=== PATIENT | male | born 1980 | race Two or more races ===

== ENCOUNTER → 2024-03-18 | Outpatient (CLI) | payer OTHER, SELFPAY ==
--- NOTE | 2024-03-18 10:53 | XR_ITS ---
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
== END | disposition home or self-care (01) ==
LOC: CDIM 10:39
PROVIDERS: PCP Physician Assistant; Referring Provider Physician Assistant; Visit Provider Physician Assistant
DX: M19.011 Primary osteoarthritis, right shoulder (principal); S46.011A Strain of muscle(s) and tendon(s) of the rotator cuff of right shoulder, initial encounter; X58.XXXA Exposure to other specified factors, initial encounter
CPT/HCPCS: 73030

== ENCOUNTER 2024-10-31 19:39 | Emergency (ER) | payer BC, MEDICAID, SELFPAY ==
[2024-10-31 19:40] VITALS: BMI 50.6
[2024-10-31 20:23] VITALS: BP 144/96; PULSE 91; RESP 18; TEMP 37.3; O2SAT 97
--- NOTE | 2024-10-31 20:24 | XR_ITS ---
Examination: CT abdomen and pelvis without contrast. Coronal 3-D reconstructions. Sagittal 2-D reconstructions. Date and time of exam:November 10, 2024 2122 hrs. Indications: Onset left-sided flank pain today CTDI: vol (mGy): 15.4 DLP: (mGycm): 979 Technique: Axial images of the abdomen have been obtained, 3 mm slice thickness Intravenous contrast material has not been administered. Low dose protocols were performed. One or more of the following dose reduction techniques were used; automated exposure control, adjustment of the mA and/or KV according to patient size, use of iterative reconstruction technique. Findings: No focal liver or splenic lesions No gallstones No pancreatic or adrenal mass 1 mm left renal calculus, 2 mm right renal calculus No hydronephrosis or ureteral calculi. Aorta normal size. Absent appendix. No bowel obstruction Intact urinary bladder. No prostatomegaly Moderate degenerative disc disease at the lower 3 lumbar levels Impression: Tiny bilateral nonobstructing renal calculi. No hydronephrosis or ureteral calculi
[2024-10-31 21:01] LABS: Basophils # (Auto) 0.0 Thou/mm3 (0.0-0.2); Basophils % (Auto) 0 % (0-2.5); Eosinophils # (Auto) 0.2 Thou/mm3 (0.0-0.5); Eosinophils % (Auto) 2 % (0-10); Hematocrit 40.6 % (41.0-53.0); Hemoglobin 14.5 g/dL (13.5-16.0); Immature Granulocytes Auto 0.04 Thou/mm3 (0.00-0.00); Lymphocytes # (Auto) 3.5 Thou/mm3 (1.0-4.8); Lymphocytes % (Auto) 24 % (10-50); Mean Corpuscular HGB Conc 35.7 g/dl (31.0-37.0); Mean Corpuscular Hemoglobin 31.0 pg (25.0-35.0); Mean Corpuscular Volume 87 fL (80-100); Monocytes # (Auto) 1.4 Thou/mm3 (0.0-0.8); Monocytes % (Auto) 10 % (0-12); Neutrophils # (Auto) 9.3 Thou/mm3 (1.8-7.7); Neutrophils % (Auto) 64 % (37-80); Nucleated Red Blood Cell # 0.00 Thou/mm3 (0.00-0.00); Nucleated Red Blood Cell % 0 /100 WBC (0); Platelet Count 252 Thou/mm3 (140-440); RDW Standard Deviation 39.3 fL (35.1-43.9); Red Blood Count 4.67 Miln/mm3 (4.50-5.90); White Blood Count 14.5 Thou/mm3 (3.8-10.6)
[2024-10-31 21:08] LABS: Collection Type, Urine Clean Catch
[2024-10-31 21:17] LABS: Bilirubin,Urine Negative (Negative); Blood,Urine Negative (Negative); Clarity,Urine Clear (Clear/Hazy); Color,Urine Lt-Yellow (Lt Yel-Yel); Glucose, Urine Negative (Negative); Ketones,Urine Negative (Negative); Leukocyte Esterase,Urine Negative (Negative); Nitrite,Urine Negative (Negative); PH,Urine 6.0 (5.0-7.0); Protein,Urine Negative (Neg - Trace); RBC,Urine 1 /hpf (0-3); Specific Gravity,Urine 1.020 (1.001-1.035); Squamous Epithelial Cell,Urine 1 /hpf (0-5); Urobilinogen,Urine Negative mg/dL (0.0-1.0); WBC,Urine < 1 /hpf (0-5)
[2024-10-31 21:32] LABS: Alanine Aminotransferase 17 U/L (10-49); Albumin, Serum 4.3 gm/dL (3.5-5.0); Albumin/Globulin Ratio 1.6 (1.2-2.2); Alkaline Phosphatase 56 U/L (46-116); Anion Gap 10 (7-16); Aspartate Amino Transferase 16 U/L (0-34); BUN/Creatinine Ratio 9 Ratio (12-20); Bilirubin,Total 0.3 mg/dL (0.3-1.2); Blood Urea Nitrogen 10 mg/dL (9-23); Calcium 9.4 mg/dL (8.3-10.6); Calcium (Corrected) 9.4 mg/dL (8.5-10.1); Carbon Dioxide 28.1 mMol/L (20.0-31.0); Chloride 102 mMol/L (98-107); Creatinine (Component) 1.1 mg/dL (0.6-1.3); Estimated Creatinine Clearance 101.7 mL/min (>60); Globulin 2.7 gm/dL (2.3-3.5); Glucose 85 mg/dL (74-106); Lipase 35 U/L (12-53); Osmolality,Calculated 277 (275-295); Potassium 4.3 mMol/L (3.4-5.1); Sodium 140 mMol/L (136-145); Total Protein 7.0 gm/dL (5.7-8.2); eGFR > 60 See Note
--- NOTE | 2024-10-31 22:18 | PD.EDRME ---
Rapid Medical Screening Exam RME Arrival date/time: 10/31/24 19:39 This is a case of 44-year-old male with no medical history came in in the emergency room due to left flank pain radiating to the left side of the abdomen with nausea vomiting for 3 days worsening of the symptoms this patient decided to sought consult here in the emergency room Chief Complaint: Abdominal Pain Time Seen by Provider: 10/31/24 19:41 Vital signs: Vital Signs Temperature 99.2 F 10/31/24 20:23 Pulse Rate 91 10/31/24 20:23 Respiratory Rate 18 10/31/24 20:23 Blood Pressure 144/96 H 10/31/24 20:23 Pulse Oximetry (%) 97 10/31/24 20:23 Oxygen Delivery Method Room Air 10/31/24 20:23
--- NOTE | 2024-10-31 22:48 | PD.EDABDPN ---
ED Abdominal Pain RME/HPI General Chief Complaint: Abdominal Pain Stated complaint: LEFT FLANK PAIN Time seen by provider: 10/31/24 19:41 Arrival date/time: 10/31/24 19:39 This is a case of 44-year-old male with no medical history came in in the emergency room due to left flank pain radiating to the left side of the abdomen with nausea vomiting for 3 days worsening of the symptoms this patient decided to sought consult here in the emergency room Limitations: no limitations RME / HPI RME / HPI narrative: 10/31/24 19:39 This is a case of 44-year-old male with no medical history came in in the emergency room due to left flank pain radiating to the left side of the abdomen with nausea vomiting for 3 days worsening of the symptoms this patient decided to sought consult here in the emergency room Related Data Home Medications ?Medication ?Instructions ?Recorded ?Confirmed amlodipine 5 mg-benazepril 10 mg 1 cap PO HS 06/06/20 06/07/20 capsule Previous Rx's ?Medication ?Instructions ?Recorded cephalexin 500 mg capsule 500 mg PO BID #14 caps 06/07/20 hydrocodone 5 mg-acetaminophen 325 1 tab PO Q6H PRN pain #20 tabs 10/31/24 mg tablet ondansetron 4 mg disintegrating 4 mg PO Q8H PRN nausea and 10/31/24 tablet vomiting #20 tabs tamsulosin 0.4 mg capsule (Flomax) 0.4 mg PO QDAY #10 caps 10/31/24 Allergies Allergy/AdvReac Type Severity Reaction Status Date / Time No Known Allergies Allergy Verified 10/31/24 19:39 Review of Systems Review of Systems Systems Reviewed: All systems reviewed, normal except as documented Constitutional Constitutional: Reports system reviewed and no additional complaints, except as documented and Reports as per HPI Cardiovascular Cardiovascular: Reports system reviewed and no additional complaints, except as documented and Reports as per HPI Respiratory Respiratory: Reports system reviewed and no additional complaints, except as documented and Reports as per HPI Gastrointestinal Gastrointestinal: Reports system reviewed and no additional complaints, except as documented, Reports as per HPI, Reports abdominal pain, Reports nausea and Reports vomiting Neurologic Neurologic: Reports system reviewed and no additional complaints, except as documented and Reports as per HPI Past Medical History Past Medical History NEUROLOGIC: Negative Neurological Disorders or Seizures CARDIAC: Positive Cardiac Disorders and Hypertension; Negative Congestive Heart Failure RESPIRATORY: Negative Chronic Obstructive Pulmonary Disease (COPD) GASTROINTESTINAL: Negative Gastrointestinal Disorders or Hepatitis GENITOURINARY: Negative Genitourinary Disorders or Renal Disease MUSCULOSKELETAL: Positive Musculoskeletal Disorders (TORE ACL LEFT KNEE) ENDOCRINE: Negative Endocrine Disorders, Diabetes Mellitus Type 1 or Diabetes Mellitus Type 2 HEMATOLOGIC: Negative Anemia or Clotting Problems OTHER HISTORY: Negative Falls, Blood Transfusions, Blood Transfusion Reaction, Anesthesia Reactions, MRSA, Chicken Pox or Cancer Family History FAMILY HISTORY: Positive Family Cardiac Disorders (MOTHER-HTN); Negative Family Surgery or Family Anesthesia Reaction Surgical History SURGICAL: Positive Abdominal Surgery; Negative Cardiac Surgery, Endocrine Surgery, Ear Surgery, Nephrectomy, Neurologic Surgery or Vasectomy Social History SMOKING STATUS: Never smoker ED Exam General Limitations: Present no limitations General appearance: Present alert, in no apparent distress and other (Patient is awake alert oriented not in distress nontoxic looking well-hydrated well-nourished) Head Head exam: Present atraumatic, normocephalic and normal inspection Eye Eye exam: Present normal appearance, PERRL and EOMI ENT ENT exam: Present normal exam, normal oropharynx and mucous membranes moist Neck Neck exam: Present normal inspection, full ROM and trachea midline; Absent tenderness, meningismus or lymphadenopathy Chest Chest inspection: Present normal inspection and symmetric chest wall rise; Absent tenderness Respiratory Respiratory exam: Present normal lung sounds bilaterally; Absent respiratory distress, wheezes, stridor, accessory muscle use or prolonged expiratory phase Cardiovascular Cardiovascular exam: Present regular rate, normal rhythm and normal heart sounds; Absent bradycardia, tachycardia, irregular rhythm, systolic murmur or diastolic murmur Abdominal Exam Abdominal exam: Present soft, tenderness (Mild tenderness left flank mild CVA tenderness left) and normal bowel sounds; Absent distention, guarding, rebound, rigidity, diminished bowel sounds, hyperactive bowel sounds, hypoactive bowel sounds, organomegaly, trauma, psoas sign, obturator sign, Gómez's sign, Rovsing's sign, tenderness at McBurney's Point, mass or hernia Extremities Exam Extremities exam: Present normal inspection and full ROM Back Exam Back exam: Present normal inspection and full ROM; Absent tenderness, CVA tenderness (R), CVA tenderness (L), muscle spasm, paraspinal tenderness, vertebral tenderness, rashes, sciatic notch tenderness (R), sciatic notch tenderness (L), straight leg raise (R) or straight leg raise (L) Neurological Exam Neurological exam: Present alert, oriented X3, CN II-XII intact, normal gait and reflexes normal; Absent motor sensory deficit Psychiatric Psychiatric exam: Present normal affect and normal mood Skin Skin exam: Present warm, dry, intact and normal color Course Quality Measures none Orders Category Date Time Status CT abdomen pelvis wo con Stat Exams 10/31/24 20:24 Completed CBC Stat Lab 10/31/24 20:43 Completed Comprehensive Metabolic Panel Stat Lab 10/31/24 20:43 Completed Lipase Stat Lab 10/31/24 20:43 Completed Urinalysis Stat Lab 10/31/24 20:41 Completed Ketorolac Inj [Toradol Inj] Med 10/31/24 22:42 Discontinued 30 mg IM X1 ONE Morphine* Inj Med 10/31/24 22:42 Discontinued 4 mg IM X1 ONE Ondansetron Odt [Zofran Odt] Med 10/31/24 22:42 Discontinued 4 mg PO X1 ONE Tamsulosin HCl [Flomax] Med 10/31/24 22:42 Discontinued 0.4 mg PO X1 ONE Vital Signs Vital signs: Vital Signs Temperature 99.2 F 10/31/24 20:23 Pulse Rate 91 10/31/24 20:23 Respiratory Rate 18 10/31/24 20:23 Blood Pressure 144/96 H 10/31/24 20:23 Pulse Oximetry (%) 97 10/31/24 20:23 Oxygen Delivery Method Room Air 10/31/24 20:23 Oxygen saturation is 97% on room air Abdominal Pain MDM MDM Narrative MDM Narrative:: This is a case of 44-year-old male with no medical history came in in the emergency room due to left flank pain radiating to the left side of the abdomen with nausea vomiting for 3 days worsening of the symptoms this patient decided to sought consult here in the emergency room physical examination patient is awake alert oriented not in distress nontoxic looking well-hydrated well-nourished patient vital signs stable BP stable not tachycardic not tachypneic afebrile and nonhypoxic patient abdominal exam is benign nonsurgical no guarding no rebound no rigidity mild tenderness on the left flank with mild CVA tenderness on the left flank no bladder tenderness or distention negative psoas negative straight and negative Rovsing's no McBurney's negative Gómez sign negative CVA tenderness no signs and symptoms of sepsis dehydration or acute abdomen blood test showed leukocytosis WBC is 14,000 no anemia kidney and liver function is normal no electrolyte imbalance lipase is normal urinalysis is normal CT scan showed a bilateral nephrolithiasis and DDD of lumbar patient was given morphine and Toradol here in the emergency room for pain Zofran for nausea vomiting and Flomax for kidney stone after 30 minutes patient was reassessed patient pain was resolved patient will follow-up PCP in 2 days for reevaluation and to be referred to urologist for nephrolithiasis and neurosurgeon for DDD lumbar for possible MRI to rule out herniated disc return precaution to ER for worsening symptoms is advised Patient was discharged with comfortable condition walking with stable gait. Patient verbalized no further complains explained diagnosis and answered patient question. Patient is comfortable with the proposed management plan including the need to follow up with his/her primary care physician and any specialist if applicable Discussed patient for any urgent condition or worsening sx, He/She needed to go to emergency room immediately or call 911. Patient acknowledge the responsibility to follow up as instructed and to monitor her/his symptoms. For any persistence of the symptoms for more than 3-5 days return precaution advised. Discussed the result of the test and was given printed discharge instruction Patient data External records reviewed:: [facility] previous records Clinical information provided by:: patient and family Social determinants that could affect healthcare access:: none Patient has the following chronic illnesses:: None How is presenting disease/condition affected by chronic disease/condition?: no chronic disease Evaluation data The following diagnostics were reviewed and interpreted by me:: lab results and radiology exam(s) Lab and/or radiology exams considered but not ordered:: Reviewed Interpretation Summary: Reviewed Medications / Prescriptions Medications or Prescriptions considered but not ordered:: Given Medication administrations:: Medication Administration History Discontinued Medications Ketorolac Tromethamine (Ketorolac Inj 60 Mg/2 Ml Vial) 30 mg IM X1 ONE Stop: 10/31/24 22:43 Morphine Sulfate (Morphine Sulf Inj 4 Mg/Ml Vial) 4 mg IM X1 ONE Stop: 10/31/24 22:43 Ondansetron HCl (Ondansetron Odt 4 Mg Tabrap) 4 mg PO X1 ONE; Protocol Stop: 10/31/24 22:43 Tamsulosin HCl (Tamsulosin Hcl 0.4 Mg Capsule) 0.4 mg PO X1 ONE Stop: 10/31/24 22:43 Given Consultations Consultation(s) initiated? (list below): No Diagnosis Differential diagnosis abdominal pain: abdominal pain, acute appendicitis, calculus of kidney, diverticulitis, gastroenteritis and small bowel obstruction Most likely diagnosis given after review of the tests above:: Nephrolithiasis Admission Indicated Admission indicated?: not indicated Explain why admission is indicated or not indicated:: Not indicated Admission Request Was there a request for admission?: No Disposition Plan Disposition Plan: Discharge Discharge Attestation Discharge Attestation: The patient and all family members were given an opportunity to ask questions and understood the discharge instructions. Discharge instructions specifically effects, indications for sooner follow up or return to the emergency department, and the expected course of current diagnosis. Patient condition: Stable Discharge Plan Plan Patient Disposition: HOME (Self Care) Patient condition on transfer: Stable Prescriptions/Referrals Prescriptions/Med Rec: New hydrocodone-acetaminophen 5-325 mg tablet 1 tab PO Q6H MDD max 4 tabs per day PRN (Reason: pain) Qty: 20 0RF tamsulosin [Flomax] 0.4 mg capsule 0.4 mg PO QDAY Qty: 10 0RF ondansetron 4 mg tablet,disintegrating 4 mg PO Q8H PRN (Reason: nausea and vomiting) Qty: 20 0RF No Action amlodipine-benazepril 5-10 mg Capsule 1 cap PO HS cephalexin 500 mg capsule 500 mg PO BID Qty: 14 0RF Referrals: Ric Bryson MD [Primary Care Provider, Family Practice] - In 1 week Johanna Lewis MD [Physician, Urology] - 11/01/24 Referral Note: For further evaluation and treatment of nephrolithiasis Problem List Clinical Impression: Flank pain, Bilateral nephrolithiasis, DDD (degenerative disc disease), lumbar Patient/Caregiver Discharge Instructions Education Materials: Kidney Stones Your Evaluation, ED Degenerative Disk Disease, ED Flank Pain, Uncertain Cause Additional Instructions: Follow-up with your primary care physician in 2 days for reevaluation and to be referred to urologist for further evaluation and treatment of nephrolithiasis recurrence persistent worsening symptoms or any emergent concern call 911 or go to the nearest emergency room it is also important to be referred to neurosurgeon for MRI of your lumbar to rule out herniated disc and for further treatment of DDD lumbar take your medication as directed increase water intake keep hydrated Pedialyte and Gatorade for hydration ice pack and warm compress as needed for back pain Print Language: [place] Stand Alone Forms: [employer] Info., Patient Portal Info Letter PA/COMMUNICATIONS OPERATOR Supervising Physician PA/COMMUNICATIONS OPERATOR Supervising Physician: Dr. Carmen
[2024-10-31] MEDS: MORPHINE SULF INJ 4 MG/ML VIAL IM (23:30)
[2024-10-31] MEDS: KETOROLAC INJ 60 MG/2 ML VIAL 30 MG IM (23:31)
[2024-10-31] MEDS: TAMSULOSIN HCL 0.4 MG CAPSULE PO (23:32)
[2024-10-31] MEDS: ONDANSETRON ODT 4 MG TABRAP PO (23:32)
[2024-10-31 23:42] VITALS: BP 142/88; PULSE 88; RESP 18; TEMP 36.8; O2SAT 99
== END 2024-10-31 23:46 | disposition home or self-care (01) ==
PROVIDERS: Nurse Practitioner Family; Emergency Provider Emergency Medicine; PCP Family Medicine
DX: R10.9 Unspecified abdominal pain (principal); N20.0 Calculus of kidney; M51.369 Other intervertebral disc degeneration, lumbar region without mention of lumbar back pain or lower extremity pain
CPT/HCPCS: 36415; 74176; 80053; 81001; 83690; 85025; 96372; 99283; J1885; J2270; Q0162; A9270